=== PATIENT | male | born 1995 | race African-American/Black ===

== ENCOUNTER 2019-03-23 15:36 | Emergency (ER) | payer BC ==
[~2019-03-23] VITALS: Ht 185.4 cm; Wt 83.9 kg
[2019-03-23] MEDS ORDERED: SODIUM CHLORIDE 0.9% 1000ML 1,000 ML IV ONE (15:45)
[2019-03-23] MEDS ORDERED: METOCLOPRAMIDE HCL 10 MG/2ML VIAL IV NR (16:00)
[2019-03-23] MEDS ORDERED: DIPHENHYDRAMINE HCL INJ 50 MG/ML VIAL IV NR (16:00)
[2019-03-23] MEDS ORDERED: KETOROLAC TROMETHAMINE 30 MG/ML VIAL IV NR (16:00)
== END 2019-03-23 17:19 | disposition home or self-care (01) ==
LOC: ER 15:36
DX: G44.211 Episodic tension-type headache, intractable (principal); R11.0 Nausea; R05 Cough; F17.210 Nicotine dependence, cigarettes, uncomplicated
CPT/HCPCS: 99283; J1200; J1885; J2765; J7030